=== PATIENT | female | born 1975 | race Caucasian/White ===

== ENCOUNTER 2024-06-15 07:00 | Day surgery (SDC) | payer BC ==
[2024-06-12 10:53] VITALS: BMI 24.1
[2024-06-15] MEDS ORDERED: Isosulfan Blue 50 MG/5 ML VIAL ONE (08:15)
[2024-06-15] MEDS ORDERED: Bupivacaine HCl 0.5%/Epinephrine 1:200,000/PF 30 ml Vial ONE (08:15)
[2024-06-15] MEDS ORDERED: PROPOFOL 20 ML ONE (08:27)
[2024-06-15] MEDS ORDERED: Lidocaine 2% PF 5 ML VIAL ONE (08:27)
[2024-06-15] MEDS ORDERED: CEFAZOLIN 2 GM VIAL ONE (09:15)
[2024-06-15] MEDS ORDERED: Midazolam HCl 2 mg/2 ml Vial ONE (09:17)
[2024-06-15] MEDS ORDERED: fentaNYL 50 mcg/mL 1 mL Vial ONE ×2 (09:41→10:40)
[2024-06-15] MEDS ORDERED: Dexamethasone 4 mg/ml Vial ONE (09:48)
[2024-06-15] MEDS ORDERED: Ondansetron PF 4 MG/2 ML Vial ONE (09:48)
[2024-06-15] MEDS ORDERED: Ketorolac Tromethamine 30 MG (1 mL) VIAL ONE (10:21)
[2024-06-15] MEDS ORDERED: ePHEDrine Sulfate 50 MG/10 ML VIAL ONE (10:26)
[2024-06-15] MEDS ORDERED: HYDROcodone/Acetaminophen 5/325 mg Tablet ONE (12:43)
== END 2024-06-15 13:00 | disposition home or self-care (01) ==
LOC: CSHSDC 07:00
PROVIDERS: ATTEND Surgery
PROC: 0HBT0ZZ Excision of Right Breast, Open Approach (ICD-10-PCS; principal; 2024-06-15)
PROC: 07B50ZZ Excision of Right Axillary Lymphatic, Open Approach (ICD-10-PCS; principal; 2024-06-15)
DX: C50.411 Malignant neoplasm of upper-outer quadrant of right female breast (principal); Z79.899 Other long term (current) drug therapy; Z17.0 Estrogen receptor positive status [ER+]; Z17.21 Progesterone receptor positive status
CPT/HCPCS: 19285; 76098; 78195; 88307; 88342; A9541; C1713; J1100; J1885; J2250; J2405; J2704; J3010; Q9968

== ENCOUNTER 2025-01-31 13:20 | Outpatient (CLI) | payer BC | END 2025-01-31 13:21 | disposition home or self-care (01) | LOC: CSHMAMMO 13:20 | PROVIDERS: ATTEND Surgery | DX: Z08 Encounter for follow-up examination after completed treatment for malignant neoplasm (principal); Z85.3 Personal history of malignant neoplasm of breast; Z98.890 Other specified postprocedural states | CPT/HCPCS: G0279 ==